=== PATIENT | male | born 1990 | race Caucasian/White ===

== ENCOUNTER 2018-03-09 17:54 | Emergency (ER) | payer OTHER ==
[2018-03-09] MEDS ORDERED: NALOXONE 0.4 MG/ML 10 ML VIAL IVP STA (18:08)
[2018-03-09] MEDS ORDERED: ONDANSETRON 4 MG/2 ML VIAL IVP STA (18:10)
[2018-03-09] MEDS ORDERED: SODIUM CHLORIDE 0.9% 500 ML 500 ML IV ONE (18:18)
[2018-03-09] MEDS ORDERED: NALOXONE 0.4 MG/ML 1 ML VIAL IM STA (18:18)
[2018-03-09] MEDS: PROPOFOL 1,000 MG in EMPTY BAG 1 BAG IV ONE ×2 (18:20→20:43)
[2018-03-09 18:30] LABS: Glucose,Whole Blood 179 mg/dL (75-99)
--- NOTE | 2018-03-09 18:30 | ED ---
General Adult HPI - General Chief complaint: Nausea/Vomiting/Diarrhea Stated complaint: Vomiting, Confusion Time Seen by Provider: 03/09/18 18:00 Source: patient, RN notes reviewed Mode of arrival: wheelchair Limitations: no limitations - History of Present Illness Initial comments: This is a 27-year-old male who presents emergency Department complaining of wanting to vomit however he was already covered in vomit. According to the friend he called her stating that he had a very bad headache when she got there he looks sick to her and he started vomiting. By the time I was called into the room the patient was not responsive and was having agonal respirations. Even after 2 mg of Narcan were administered IV the patient did not respond any better and was still having agonal respirations with apneic periods of 15 or so seconds. We took the patient to the trauma bay at this time and I intubated the patient. Friend stated that he occasionally drinks but she does not know any of his medical history and does not believe he involved in any drug use. No other history was available this time - Related Data Home Medications Medication Instructions Recorded Confirmed No Known Home Medications 03/09/18 03/09/18 Allergies Allergy/AdvReac Type Severity Reaction Status Date / Time No Known Allergies Allergy Verified 03/09/18 18:08 Review of Systems ROS Statement: Those systems with pertinent positive or pertinent negative responses have been documented in the HPI. ROS Other: All systems not noted in ROS Statement are negative. Past Medical History Past Medical History: No Reported History History of Any Multi-Drug Resistant Organisms: None Reported Past Surgical History: Cholecystectomy Past Psychological History: Anxiety Smoking Status: Current every day smoker Past Alcohol Use History: Occasional Past Drug Use History: None Reported General Exam - General Exam Comments Initial Comments: GENERAL: Patient is well-developed and well-nourished. Patient is unresponsive and having agonal respirations with some apneic periods. Patient has vomited all over the front of himself. ENT: Neck is soft and supple. No significant lymphadenopathy is noted. Oropharynx is clear. Moist mucous membranes. Neck has full range of motion without eliciting any pain. EYES: The sclera were anicteric and conjunctiva were pink and moist. Unable to assess extraocular movement. Patient's pupils were fixed at 2 mm. PULMONARY: Unlabored respirations. Good breath sounds bilaterally. No audible rales rhonchi or wheezing was noted. CARDIOVASCULAR: There is a regular rate and rhythm without any murmurs gallops or rubs. ABDOMEN: Soft and nontender with normal bowel sounds. SKIN: Skin is clear with no lesions or rashes and otherwise unremarkable. NEUROLOGIC: Patient is unresponsive. He occasionally takes some deep breaths and moves all 4 extremities but has not communicated with us at all MUSCULOSKELETAL: Normal extremities with adequate strength and full range of motion. No lower extremity swelling or edema. No calf tenderness. LYMPHATICS: No significant lymphadenopathy is noted PSYCHIATRIC: Unable to assess Limitations: no limitations Course Vital Signs 03/09/18 03/09/18 03/09/18 17:56 18:08 18:15 Pulse Rate 86 88 Respiratory 16 8 L 16 Rate Blood Pressure 156/108 150/110 O2 Sat by Pulse 100 95 Oximetry 03/09/18 03/09/18 03/09/18 18:30 18:45 19:00 Pulse Rate 95 64 89 Respiratory 22 26 H 23 Rate Blood Pressure 137/100 123/94 126/85 O2 Sat by Pulse 96 100 96 Oximetry 03/09/18 03/09/18 03/09/18 19:15 19:45 20:05 Pulse Rate 81 70 88 Respiratory 24 21 28 H Rate Blood Pressure 138/78 134/109 170/100 O2 Sat by Pulse 99 99 98 Oximetry 03/09/18 03/09/18 20:21 20:29 Pulse Rate 67 96 Respiratory 23 23 Rate Blood Pressure 136/99 130/89 O2 Sat by Pulse 98 100 Oximetry Procedures - Intubation Sedative: Versed Paralytic: Succinylcholine Laryngoscope: Flowers Size: 3 ET Tube Size: 8 ET Tube Uncuffed: No Tube Placement Confirmation: visualized tube passing through cords, equal breath sounds bilaterally, no breath sounds over epigastrium, confirmation by capnometry Patient Tolerated Procedure: well Intubation Complications: none Medical Decision Making - Medical Decision Making EKG shows a sinus rhythm at 81 bpm WV interval 268 QRSs 122 QT interval 344 QTC is 399. Patient's EKG does show some ST segment depression in inferior leads. As well as all precordial leads Chest x-ray was done after the patient was intubated ET tube was a little high but there appeared to be some deviation of the trachea so I did not push the ET tube any further since he was oxygenating at 100%. Patient's computed tomography scan showed a massive subarachnoid hemorrhage with interventricular bleeding. I spoke with Dr. Chichi Najera one patient transferred to [place] after he spoke with family. Initially family wanted to go to [place] but after speaking with Dr. Cadet they wanted to do with Dr. Laura dominguez. Patient extubated himself tonight and intubate the patient. There are no complications with the intubation. Patient had equal breath sounds as well as capnography showed good placement. Patient was loaded with Keppra. - Lab Data Result diagrams: 03/09/18 18:24 03/09/18 18:24 Lab Results 03/09/18 03/09/18 03/09/18 Range/Units 18:24 18:24 18:24 WBC 18.2 H (3.8-10.6) k/uL RBC 5.80 (4.30-5.90) m/uL Hgb 18.6 H (13.0-17.5) gm/dL Hct 54.1 H (39.0-53.0) % MCV 93.3 (80.0-100.0) fL MCH 32.1 (25.0-35.0) pg MCHC 34.4 (31.0-37.0) g/dL RDW 12.9 (11.5-15.5) % Plt Count 278 (150-450) k/uL Neutrophils % 74 % Lymphocytes % 18 % Monocytes % 4 % Eosinophils % 2 % Basophils % 0 % Neutrophils # 13.5 H (1.3-7.7) k/uL Lymphocytes # 3.3 (1.0-4.8) k/uL Monocytes # 0.8 (0-1.0) k/uL Eosinophils # 0.4 (0-0.7) k/uL Basophils # 0.1 (0-0.2) k/uL PT (9.0-12.0) sec INR (<1.2) APTT (22.0-30.0) sec Sodium 138 (137-145) mmol/L Potassium 3.4 L (3.5-5.1) mmol/L Chloride 103 (98-107) mmol/L Carbon Dioxide 21 L (22-30) mmol/L Anion Gap 14 mmol/L BUN 14 (9-20) mg/dL Creatinine 0.96 (0.66-1.25) mg/dL Est GFR (CKD-EPI)AfAm >90 (>60 ml/min/1.73 sqM) Est GFR (CKD-EPI)NonAf >90 (>60 ml/min/1.73 sqM) Glucose 206 H (74-99) mg/dL POC Glucose (mg/dL) (75-99) mg/dL POC Glu Thermoscrew Operator ID Calcium 9.7 (8.4-10.2) mg/dL Magnesium (1.6-2.3) mg/dL Total Bilirubin 1.1 (0.2-1.3) mg/dL AST 94 H (17-59) U/L ALT 88 H (21-72) U/L Alkaline Phosphatase 59 (38-126) U/L Total Creatine Kinase 135 (55-170) U/L CK-MB (CK-2) 0.9 (0.0-2.4) ng/mL CK-MB (CK-2) Rel Index 0.7 Troponin I <0.012 (0.000-0.034) ng/mL Total Protein 7.7 (6.3-8.2) g/dL Albumin 4.7 (3.5-5.0) g/dL Urine Color Urine Appearance (Clear) Urine pH (5.0-8.0) Ur Specific [place] (1.001-1.035) Urine Protein (Negative) Urine Glucose (UA) (Negative) Urine Ketones (Negative) Urine Blood (Negative) Urine Nitrite (Negative) Urine Bilirubin (Negative) Urine Urobilinogen (<2.0) mg/dL Ur Leukocyte Esterase (Negative) Urine RBC (0-5) /hpf Urine WBC (0-5) /hpf Ur Squamous Epith Cells (0-4) /hpf Granular Casts (0) /lpf Urine Mucus (None) /hpf Urine Opiates Screen (NotDetected) Ur Oxycodone Screen (NotDetected) Urine Methadone Screen (NotDetected) Ur Propoxyphene Screen (NotDetected) Ur Barbiturates Screen (NotDetected) U Tricyclic Antidepress (NotDetected) Ur Phencyclidine Scrn (NotDetected) Ur Amphetamines Screen (NotDetected) U Methamphetamines Scrn (NotDetected) U Benzodiazepines Scrn (NotDetected) Urine Cocaine Screen (NotDetected) U Marijuana (THC) Screen (NotDetected) Serum Alcohol mg/dL 03/09/18 03/09/18 03/09/18 Range/Units 18:24 18:24 18:28 WBC (3.8-10.6) k/uL RBC (4.30-5.90) m/uL Hgb (13.0-17.5) gm/dL Hct (39.0-53.0) % MCV (80.0-100.0) fL MCH (25.0-35.0) pg MCHC (31.0-37.0) g/dL RDW (11.5-15.5) % Plt Count (150-450) k/uL Neutrophils % % Lymphocytes % % Monocytes % % Eosinophils % % Basophils % % Neutrophils # (1.3-7.7) k/uL Lymphocytes # (1.0-4.8) k/uL Monocytes # (0-1.0) k/uL Eosinophils # (0-0.7) k/uL Basophils # (0-0.2) k/uL PT 10.5 (9.0-12.0) sec INR 1.1 (<1.2) APTT 20.3 L (22.0-30.0) sec Sodium (137-145) mmol/L Potassium (3.5-5.1) mmol/L Chloride (98-107) mmol/L Carbon Dioxide (22-30) mmol/L Anion Gap mmol/L BUN (9-20) mg/dL Creatinine (0.66-1.25) mg/dL Est GFR (CKD-EPI)AfAm (>60 ml/min/1.73 sqM) Est GFR (CKD-EPI)NonAf (>60 ml/min/1.73 sqM) Glucose (74-99) mg/dL POC Glucose (mg/dL) 179 H (75-99) mg/dL POC Glu Thermoscrew Operator ID Sarah Garduno Calcium (8.4-10.2) mg/dL Magnesium (1.6-2.3) mg/dL Total Bilirubin (0.2-1.3) mg/dL AST (17-59) U/L ALT (21-72) U/L Alkaline Phosphatase (38-126) U/L Total Creatine Kinase (55-170) U/L CK-MB (CK-2) (0.0-2.4) ng/mL CK-MB (CK-2) Rel Index Troponin I (0.000-0.034) ng/mL Total Protein (6.3-8.2) g/dL Albumin (3.5-5.0) g/dL Urine Color Yellow Urine Appearance Clear (Clear) Urine pH 6.5 (5.0-8.0) Ur Specific [place] 1.014 (1.001-1.035) Urine Protein 2+ H (Negative) Urine Glucose (UA) 1+ H (Negative) Urine Ketones 1+ H (Negative) Urine Blood Trace H (Negative) Urine Nitrite Negative (Negative) Urine Bilirubin Negative (Negative) Urine Urobilinogen <2.0 (<2.0) mg/dL Ur Leukocyte Esterase Negative (Negative) Urine RBC 1 (0-5) /hpf Urine WBC 5 (0-5) /hpf Ur Squamous Epith Cells 1 (0-4) /hpf Granular Casts 3 (0) /lpf Urine Mucus Rare H (None) /hpf Urine Opiates Screen Not Detected (NotDetected) Ur Oxycodone Screen Not Detected (NotDetected) Urine Methadone Screen Not Detected (NotDetected) Ur Propoxyphene Screen Not Detected (NotDetected) Ur Barbiturates Screen Not Detected (NotDetected) U Tricyclic Antidepress Not Detected (NotDetected) Ur Phencyclidine Scrn Not Detected (NotDetected) Ur Amphetamines Screen Not Detected (NotDetected) U Methamphetamines Scrn Not Detected (NotDetected) U Benzodiazepines Scrn Not Detected (NotDetected) Urine Cocaine Screen Not Detected (NotDetected) U Marijuana (THC) Screen Detected H (NotDetected) Serum Alcohol mg/dL 03/09/18 Range/Units 19:15 WBC (3.8-10.6) k/uL RBC (4.30-5.90) m/uL Hgb (13.0-17.5) gm/dL Hct (39.0-53.0) % MCV (80.0-100.0) fL MCH (25.0-35.0) pg MCHC (31.0-37.0) g/dL RDW (11.5-15.5) % Plt Count (150-450) k/uL Neutrophils % % Lymphocytes % % Monocytes % % Eosinophils % % Basophils % % Neutrophils # (1.3-7.7) k/uL Lymphocytes # (1.0-4.8) k/uL Monocytes # (0-1.0) k/uL Eosinophils # (0-0.7) k/uL Basophils # (0-0.2) k/uL PT (9.0-12.0) sec INR (<1.2) APTT (22.0-30.0) sec Sodium (137-145) mmol/L Potassium (3.5-5.1) mmol/L Chloride (98-107) mmol/L Carbon Dioxide (22-30) mmol/L Anion Gap mmol/L BUN (9-20) mg/dL Creatinine (0.66-1.25) mg/dL Est GFR (CKD-EPI)AfAm (>60 ml/min/1.73 sqM) Est GFR (CKD-EPI)NonAf (>60 ml/min/1.73 sqM) Glucose (74-99) mg/dL POC Glucose (mg/dL) (75-99) mg/dL POC Glu Thermoscrew Operator ID Calcium (8.4-10.2) mg/dL Magnesium 1.0 L (1.6-2.3) mg/dL Total Bilirubin (0.2-1.3) mg/dL AST (17-59) U/L ALT (21-72) U/L Alkaline Phosphatase (38-126) U/L Total Creatine Kinase (55-170) U/L CK-MB (CK-2) (0.0-2.4) ng/mL CK-MB (CK-2) Rel Index Troponin I (0.000-0.034) ng/mL Total Protein (6.3-8.2) g/dL Albumin (3.5-5.0) g/dL Urine Color Urine Appearance (Clear) Urine pH (5.0-8.0) Ur Specific [place] (1.001-1.035) Urine Protein (Negative) Urine Glucose (UA) (Negative) Urine Ketones (Negative) Urine Blood (Negative) Urine Nitrite (Negative) Urine Bilirubin (Negative) Urine Urobilinogen (<2.0) mg/dL Ur Leukocyte Esterase (Negative) Urine RBC (0-5) /hpf Urine WBC (0-5) /hpf Ur Squamous Epith Cells (0-4) /hpf Granular Casts (0) /lpf Urine Mucus (None) /hpf Urine Opiates Screen (NotDetected) Ur Oxycodone Screen (NotDetected) Urine Methadone Screen (NotDetected) Ur Propoxyphene Screen (NotDetected) Ur Barbiturates Screen (NotDetected) U Tricyclic Antidepress (NotDetected) Ur Phencyclidine Scrn (NotDetected) Ur Amphetamines Screen (NotDetected) U Methamphetamines Scrn (NotDetected) U Benzodiazepines Scrn (NotDetected) Urine Cocaine Screen (NotDetected) U Marijuana (THC) Screen (NotDetected) Serum Alcohol <10 mg/dL Critical Care Time Critical Care Time: Yes Total Critical Care Time: 45 Disposition Clinical Impression: Subarachnoid hemorrhage Disposition: OTHER INSTITUTION NOT DEFINED Referrals: None,Stated [Primary Care Provider] - 1-2 days Time of Disposition: 19:03 - Out of Hospital Transfer - Req. Specs Out of Hospital Transfer - Requested Specifics: Other Emergency Center ([facility])
[2018-03-09 18:47] LABS: Appearance,Urine Clear (Clear); Bilirubin,Urine Negative (Negative); Blood,Urine Trace (Negative); Color,Urine Yellow; Glucose,Urine (UA) 1+ (Negative); Granular Casts,Urine 3 /lpf (0); Ketones,Urine 1+ (Negative); Leukocyte Esterase,Urine Negative (Negative); Mucus,Urine Rare /hpf; Nitrite,Urine Negative (Negative); PH, Urine 6.5 (5.0-8.0); Protein,Urine 2+ (Negative); RBC,Urine 1 /hpf (0-5); Specific Gravity,Urine 1.014 (1.001-1.035); Squamous Epithelial Cell,Urine 1 /hpf (0-4); Urobilinogen,Urine <2.0 mg/dL (<2.0); WBC,Urine 5 /hpf (0-5)
[2018-03-09 18:51] LABS: Creatine Kinase 135 U/L (55-170)
[2018-03-09 18:53] LABS: ALT 88 U/L (21-72); AST 94 U/L (17-59); Albumin 4.7 g/dL (3.5-5.0); Alkaline Phosphatase 59 U/L (38-126); Anion Gap 14 mmol/L; Blood Urea Nitrogen 14 mg/dL (9-20); Calcium 9.7 mg/dL (8.4-10.2); Carbon Dioxide 21 mmol/L (22-30); Chloride 103 mmol/L (98-107); Glucose 206 mg/dL (74-99); Potassium 3.4 mmol/L (3.5-5.1); Sodium 138 mmol/L (137-145); Total Bilirubin 1.1 mg/dL (0.2-1.3); Total Protein 7.7 g/dL (6.3-8.2)
[2018-03-09] MEDS ORDERED: hydrALAZINE HCL 20 MG/ML 1 ML VIAL IVP STA (18:56)
[2018-03-09 18:58] LABS: INR 1.1 (<1.2); Prothrombin Time 10.5 sec (9.0-12.0)
--- NOTE | 2018-03-09 18:59 | CT ---
EXAMINATION TYPE: CT brain wo con DATE OF EXAM: 03/09/2018 COMPARISON: None HISTORY: Altered mental status. CT DLP: 769.8 mGycm. Automated Exposure Control for Dose Reduction was Utilized. TECHNIQUE: CT scan of the head is performed without contrast. FINDINGS: There is significant acute subarachnoid hemorrhage filling the bilateral frontoparietal s ulci as well as suprasellar cistern and perimesencephalic space. Hemorrhage extends inferiorly into s gloria canal at level of foramen magnum. No midline shift is seen. There is acute intraventricular hem orrhage into the fourth ventricle noted as well as in both lateral ventricles. The ventricles and sul ci are within normal limits in size. The globes are intact and the visualized sinuses are clear. The re is partial visualization of endotracheal and orogastric tubes on localizer. The calvarium is intac t. IMPRESSION: There is large acute subarachnoid hemorrhage and moderate to large acute intraventricular hemorrhage. No midline shift is seen. Critical results communicated to ordering ER physician via telephone at time of dictation.
--- NOTE | 2018-03-09 19:01 | XR ---
EXAMINATION TYPE: XR chest 1V portable DATE OF EXAM: 03/09/2018 COMPARISON: NONE HISTORY: Unresponsive had to be intubated. TECHNIQUE: Single AP portable frontal supine view of the chest is obtained. FINDINGS: There is orogastric tube projecting below diaphragm. There is endotracheal tube with tip at superior clavicular margin, approximately 7 cm above candida. Low lung volumes are present. There is no focal air space opacity, pleural effusion, or pneumothorax seen. The cardiac silhouette size is e nlarged. Trachea is deviated to right of midline. The osseous structures are intact. IMPRESSION: 1. Endotracheal tube is slightly high in position, consider advancing 2 cm. Satisfactory positioning orogastric tube noted. 2. Cardiomegaly and low lung volumes with tracheal shift to the right, consider CT to assess for thor acic aortic aneurysm.
[2018-03-09 19:02] LABS: Basophils # (A) 0.1 k/uL (0-0.2); Basophils % (A) 0 %; Eosinophils # (A) 0.4 k/uL (0-0.7); Eosinophils % (A) 2 %; HCT 54.1 % (39.0-53.0); HGB 18.6 gm/dL (13.0-17.5); Lymphocytes # (A) 3.3 k/uL (1.0-4.8); Lymphocytes % (A) 18 %; MCH 32.1 pg (25.0-35.0); MCHC 34.4 g/dL (31.0-37.0); MCV 93.3 fL (80.0-100.0); Mean Platelet Volume 6.9; Monocytes # (A) 0.8 k/uL (0-1.0); Monocytes % (A) 4 %; Neutrophils # (A) 13.5 k/uL (1.3-7.7); Neutrophils % (A) 74 %; Platelet Count 278 k/uL (150-450); RDW 12.9 % (11.5-15.5); WBC 18.2 k/uL (3.8-10.6)
[2018-03-09 19:03] LABS: Partial Thromboplastin Time 20.3 sec (22.0-30.0)
[2018-03-09 19:04] LABS: Amphetamine Screen,Urine Not Detected (NotDetected); Barbiturate Screen,Urine Not Detected (NotDetected); Benzodiazepines Screen,Urine Not Detected (NotDetected); Cocaine Screen,Urine Not Detected (NotDetected); Creatine Kinase MB 0.9 ng/mL (0.0-2.4); Methadone Screen, Urine Not Detected (NotDetected); Opiate Screen,Urine Not Detected (NotDetected); Oxycodone Screen, Urine Not Detected (NotDetected); Phencyclidine Screen,Urine Not Detected (NotDetected); Tricyclic Antidepressant,Urine Not Detected (NotDetected); Troponin I <0.012 ng/mL (0.000-0.034); Urn Cannabinoid Scrn Detected (NotDetected)
[2018-03-09] MEDS ORDERED: MIDAZOLAM 1 MG/ML 5 ML VIAL IV STA (19:16)
--- NOTE | 2018-03-09 19:17 | CT ---
EXAMINATION TYPE: CT chest angio for PE DATE OF EXAM: 03/09/2018 COMPARISON: NONE HISTORY: pt unresponsive, unable to obtain hx CT DLP: 661.7 mGycm. Automated Exposure Control for Dose Reduction was Utilized. CONTRAST: CTA scan of the thorax is performed with IV Contrast, patient injected with 100 mL of Isovue 370, pul monary embolism protocol. MIP Images are created on CT scanner and reviewed. FINDINGS: LUNGS: Significant respiratory motion artifact degradation is seen. There is linear and dependent ate lectasis in both lower lobes. There is no concerning parenchymal mass or nodule identified. There i s no pleural effusion or pneumothorax seen. The tracheobronchial tree is patent. MEDIASTINUM: There is satisfactory enhancement of the pulmonary artery and its branches, there is no CT evidence for pulmonary embolism. There are no greater than 1 cm hilar or mediastinal lymph nodes. No cardiomegaly or pericardial effusion is seen. Endotracheal tube is high in position, consider a dvancing 2 to 3 cm. Orogastric tube projects below diaphragm. OTHER: Bilateral gynecomastia is noted. IMPRESSION: 1. No CT evidence for acute pulmonary embolism. 2. Bilateral lower lung linear and dependent atelectasis.
[2018-03-09] MEDS: SUCCINYLCHOLINE CHLORIDE VIAL 200 MG/10 ML VIAL IV STA ×2 (19:20→20:05)
[2018-03-09 19:33] LABS: Alcohol <10 mg/dL
[2018-03-09] MEDS ORDERED: levETIRAcetam IV 1,500 MG in SALINE 1 100ML.BAG IVPB STA (20:02)
--- NOTE | 2018-03-09 20:11 | CT ---
EXAMINATION TYPE: CT angio head neck DATE OF EXAM: 03/09/2018 HISTORY: Altered mental status. COMPARISON: NONE CT DLP: 791 mGycm. Automated Exposure Control for Dose Reduction was Utilized. TECHNIQUE: CTA scan of the head and neck are performed with IV Contrast, patient injected with 65ml mL of Isovue 370, axial images are obtained, coronal and sagittal reformatted images are reviewed. ree-D reconstructed images are created on an independent workstation and reviewed. FINDINGS: Carotid/Vascular Structures: Bovine type arch is present which is normal variant. There is no signifi cant plaque or stenosis of right common or internal carotid arteries including at level of carotid bu lb. There is patent external carotid artery without significant stenosis or plaque. There is no significant plaque or stenosis in left common or internal carotid artery including a leve l carotid bulb. This patent external carotid artery without significant plaque or stenosis. There is dominant left vertebral artery. Is hypoplastic or stenotic distal right vertebral artery. Th ere is suspected bleeding aneurysm in the proximal basilar artery measuring 9 x 4 mm axial image 18 s eries 407. Evaluation is suboptimal as 1 mm cuts are not sent to PACS system for interpretation. Ther e is likely present right posterior communicating artery. There is hypoplastic left posterior communi cating artery. There is small caliber distal basilar artery. No focal stenosis or additional aneurysm is present. There is tortuous course to the distal internal carotid arteries bilaterally. Patent anterior communi cating artery is seen axial image 27 series 407. Other: 1. 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 2. No significant stenosis in common or internal carotid arteries bilaterally. IMPRESSION: No significant abnormality is seen.
[2018-03-09 20:24] VITALS: RESP 23
[2018-03-09] MEDS ORDERED: niCARdipine 25 MG in SODIUM CHLORIDE 0.9% 240 ML IV SCH (20:30)
--- NOTE | 2018-03-09 20:30 | XR ---
EXAMINATION TYPE: XR chest 1V portable DATE OF EXAM: 03/09/2018 COMPARISON: Chest x-ray earlier today. HISTORY: ET tube repositioning. TECHNIQUE: Single AP portable frontal supine view of the chest is obtained. FINDINGS: There is better positioning of endotracheal tube now just below inferior clavicular margin, approximately 4 cm above the candida. There is is redemonstration of low lung volumes. The cardiac s ilhouette size remains enlarged. Trachea shift is less well-visualized. Exam suboptimal due to port able technique and patient's large body habitus. The osseous structures are intact. Orogastric tube i s redemonstrated, tip is not as well-seen on current study. IMPRESSION: 1. Improved positioning of endotracheal tube after repositioning. 2. Cardiomegaly and low lung volumes without suspicious acute infiltrate. No significant change from prior in these findings.
[2018-03-09 20:49] VITALS: BP 128/92; PULSE 75
== END 2018-03-09 21:00 | disposition other institution (70) ==
LOC: EC 17:54
DX: I60.9 Nontraumatic subarachnoid hemorrhage, unspecified (principal); F17.200 Nicotine dependence, unspecified, uncomplicated; Z90.49 Acquired absence of other specified parts of digestive tract
CPT/HCPCS: 99291; 31500; 96365; 96375 ×3; 36415; 94002; 93005; 80053; 82550; 82553; 83735; 84484; 85025; 85610; 85730; 81001; 80306; 80320; 71045; 70496; 70450; 70498; 71275; J0330; J2310; J2405; J2250; J2704; J1953; Q9967

== ENCOUNTER → 2018-05-26 | Outpatient (CLI) | payer OTHER ==
--- NOTE | 2018-05-26 13:24 | CT ---
EXAMINATION TYPE: CT brain wo con DATE OF EXAM: 05/26/2018 COMPARISON: CT brain March 09, 2018 HISTORY: f/u stroke and stent placement. Hydrocephalus per order. CT DLP: 1189 mGycm. Automated Exposure Control for Dose Reduction was Utilized. TECHNIQUE: CT scan of the head is performed without contrast. FINDINGS: There is new right-sided parietal [employer] shunt catheter terminating in inferior aspect right la teral ventricle. Ventricular size is stable from prior study with mild generalized hydrocephalus out of portion to degree of sulcal effacement. Some calcifications in right frontal sulcus are now presen t. Interval resolution of acute intracranial hemorrhage. No midline shift is seen. There is new stent in the dominant left vertebral artery through the basilar artery with adjacent aneurysm coil seen ca using streak artifact. Small area of low-attenuation right parietal lobe along shunt catheter superio r aspect is noted. The globes are intact and the visualized sinuses are clear. IMPRESSION: Stable mild hydrocephalus despite shunt tube placement. Interval resolution of large acut e subarachnoid and intraventricular hemorrhage. New vertebral basilar metallic stenting and aneurysm coil. No midline shift currently.
== END | disposition home or self-care (01) ==
LOC: RADCTMAIN 12:24
PROVIDERS: ATTEND Specialist
DX: G91.9 Hydrocephalus, unspecified (principal); I60.9 Nontraumatic subarachnoid hemorrhage, unspecified; I61.5 Nontraumatic intracerebral hemorrhage, intraventricular; Z96.89 Presence of other specified functional implants; Z98.2 Presence of cerebrospinal fluid drainage device
CPT/HCPCS: 70450